=== PATIENT | female | born 1975 ===

== ENCOUNTER 2018-01-22 10:04 | Emergency (ER) | payer OTHER ==
[2018-01-22 10:14] VITALS: TEMP 98.2; O2SAT 100
[2018-01-22 11:29] LABS: BASO # 0.1 K/uL (0.0-0.2); BASO % 0.8 % (0.0-2.0); EOS % 0.5 % (0.0-4.0); HEMOGLOBIN 11.4 g/dL (11.0-16.0); LYMPH # 2.1 K/uL (1.0-4.3); MEAN CELL VOLUME 78.9 fL (81.0-99.0); MEAN CORPUSCULAR HEMOGLOBIN 25.7 pg (27.0-31.0); MEAN CORPUSCULAR HGB CONC 32.6 g/dL (33.0-37.0); MONO # 0.3 K/uL (0.0-0.8); MONO % 4.3 % (0.0-10.0); NEUT # 4.3 K/uL (1.8-7.0); NEUT % 63.4 % (50.0-75.0); NRBC % 0.1 % (0.0-2.0); RBC 4.43 Mil/uL (3.80-5.20); WHITE BLOOD COUNT 6.7 K/uL (4.8-10.8)
--- NOTE | 2018-01-22 11:31 | C.PDOC ---
History Of Present Illness 42yo female, presents to ER for evaluation of left lower molar pain for the past Time Seen by Provider: 01/22/18 10:44 Chief Complaint (Nursing): Female Genitourinary Past Medical History Vital Signs: Last Vital Signs Temp 98.2 F 01/22/18 10:12 Pulse 87 01/22/18 10:12 Resp 16 01/22/18 10:12 BP 165/88 H 01/22/18 10:12 Pulse Ox 100 01/22/18 10:12 - Medical History PMH: Gastritis, HTN - Social History Hx Alcohol Use: No Hx Substance Use: No - Immunization History Hx Tetanus Toxoid Vaccination: No Hx Influenza Vaccination: No Hx Pneumococcal Vaccination: No ED Course And Treatment O2 Sat by Pulse Oximetry: 100 Disposition - Disposition
[2018-01-22 11:40] LABS: SQUAMOUS EPITHIAL < 1 /hpf (0-5); URINE BILIRUBIN NEGATIVE (NEGATIVE); URINE BLOOD 3+ (NEGATIVE); URINE CLARITY Hazy (Clear); URINE COLOR Yellow (YELLOW); URINE GLUCOSE (UA) NORMAL (Normal); URINE LEUKOCYTE ESTERASE NEG Leu/uL (Negative); URINE PROTEIN NEGATIVE (NEGATIVE); URINE UROBILINOGEN NORMAL mg/dL (0.2-1.0)
--- NOTE | 2018-01-22 11:52 | C.PDOC ---
History Of Present Illness 42yo female, presents to the ER with complaints of vaginal bleeding for the past 3 weeks. She reports on 01/03 she had her menstrual period but it was light; she states the period lasted 1 week and stopped. She then reports she has had constant vaginal bleeding and has been using up to 4 pads per day. She also has been passing clots and reports mild lower abdomen pain. She denies any vaginal trauma, hematuria, dysuria, fever, chills, chest pain, shortness of breath, weakness. She has no other medical complaints. PMD: None provided Time Seen by Provider: 01/22/18 10:44 Chief Complaint (Nursing): Female Genitourinary History Per: Patient History/Exam Limitations: no limitations Onset/Duration Of Symptoms: Persistent Current Symptoms Are (Timing): Still Present Quality Of Discomfort: Cramping Associated Symptoms: denies: Fever, Chills, Nausea, Vomiting, Chest Pain, Urinary Symptoms Additional History Per: Patient Abnormal Vaginal Bleeding: Yes Last Menstral Period: 01/03/18 Past Medical History Reviewed: Historical Data, Nursing Documentation, Vital Signs Vital Signs: Last Vital Signs Temp 98.2 F 01/22/18 10:12 Pulse 76 01/22/18 12:36 Resp 18 01/22/18 12:36 BP 146/87 01/22/18 12:36 Pulse Ox 100 01/25/18 07:02 - Medical History PMH: Gastritis, HTN Surgical History: No Surg Hx Family History: States: No Known Family Hx - Social History Hx Tobacco Use: No Hx Alcohol Use: No Hx Substance Use: No - Immunization History Hx Tetanus Toxoid Vaccination: No Hx Influenza Vaccination: No Hx Pneumococcal Vaccination: No Review Of Systems Constitutional: Negative for: Fever, Chills Cardiovascular: Negative for: Chest Pain Respiratory: Negative for: Shortness of Breath Gastrointestinal: Positive for: Abdominal Pain (lower abdominal pain) Genitourinary: Positive for: Vaginal Bleeding. Negative for: Dysuria, Hematuria Neurological: Positive for: Dizziness Physical Exam - Physical Exam Appears: Non-toxic, No Acute Distress Skin: Normal Color, Warm, Dry Eye(s): bilateral: Normal Inspection, Other (pink conjunctiva) Oral Mucosa: Moist Neck: Supple Chest: Symmetrical Cardiovascular: Rhythm Regular Respiratory: Normal Breath Sounds Gastrointestinal/Abdominal: Bowel Sounds (normal), Soft, No Tenderness, No Mass , No Guarding, No Rebound Back: Normal Inspection, No CVA Tenderness Extremity: Normal ROM Neurological/Psych: Oriented x3 ED Course And Treatment - Laboratory Results Result Diagrams: 01/22/18 11:25 O2 Sat by Pulse Oximetry: 100 (RA) Pulse Ox Interpretation: Normal Medical Decision Making Medical Decision Making: Plan: -- CBC -- Upreg -- Urinalysis UPreg is negative. pt with 1 month vag bleed, c/o feeling dizzy. pt not anemic. last seen by automobile upholsterer in november. has referral for outpt sono. pt not anemic; pt advised to follow up with automobile upholsterer carter and to arrange for ultrasound. Disposition Counseled Patient/Family Regarding: Studies Performed, Diagnosis, Need For Followup - Disposition Disposition: HOME/ ROUTINE Disposition Time: 12:16 Condition: GOOD Additional Instructions: Marley los arreglos para jason ecografa ambulatoria que hall gineclogo orden. Por favor, marley un seguimiento con hall gineclogo lo antes posible. Coma alimentos con alto contenido de grace, tere william magras y verduras de hoja altagracia Regrese a la lola de emergencias para detectar cualquier empeoramiento de los s ntomas. Please arrange for outpatient ultrasound that your cement truck loader ordered. Please follow up with your cement truck loader as soon as possible. Eat foods high in iron such as lean meats and leafy green vegetables Return to ER for any worsening symptoms. Instructions: Heavy Periods (DC) Forms: Gen Discharge Inst Faroese, [employer] (Faroese) Print Language: TONGAN - Clinical Impression Clinical Impression: DUB (dysfunctional uterine bleeding) - PA / TRIAGE TECHNICIAN / Resident Statement MD/DO has reviewed & agrees with the documentation as recorded. - Scribe Statement The provider has reviewed the documentation as recorded by the Scribe (Carolyn Daniel) Provider Attestation: All medical record entries made by the Scribe were at my direction and personally dictated by me. I have reviewed the chart and agree that the record accurately reflects my personal performance of the history, physical exam, medical decision making, and the department course for this patient. I have also personally directed, reviewed, and agree with the discharge instructions and disposition.
[2018-01-22 12:37] VITALS: BP 146/87; PULSE 76; RESP 18
== END 2018-01-22 12:37 | disposition home or self-care (01) ==
LOC: C.ER 10:04
DX: N93.8 Other specified abnormal uterine and vaginal bleeding (principal)